=== PATIENT | male | born 1950 | race African-American/Black ===

== ENCOUNTER 2022-06-20 11:07 | Inpatient (IN) | payer MEDICARE, OTHER ==
[~2022-06-20] VITALS: Ht 180.3 cm; Wt 85.3 kg
[2022-07-06 17:30] VITALS: BP 111/51
[2022-07-06] MEDS ORDERED: ACETAMINOPHEN 325 MG TABLET PO PRN (18:15)
[2022-07-06 18:29] VITALS: BP 111/51
[2022-07-06] MEDS ORDERED: PEG 400/HYPROMELLOSE/GLYCERIN 15 ML OPHTHALMIC SOLUTION OU PRN (18:30)
[2022-07-06] MEDS ORDERED: ONDANSETRON HCL 4 MG TABLET PO PRN (18:30)
[2022-07-06] MEDS: OxyCODONE HCL 5 MG IR TABLET PO PRN (19:12)
[2022-07-06] MEDS ORDERED: PETROLATUM,WHITE 28 GM JELLY TP PRN (19:45)
[2022-07-06] MEDS: ETHYL ALCOHOL 62% ANTISEPTIC NASAL SANITIZER 0.6 ML AMPUL NASAL SCH (22:17)
[2022-07-06] MEDS: MELATONIN 5 MG TABLET PO SCH (22:22)
[2022-07-06] MEDS: -LIDODERM PATCH NOTE- MISC SCH (22:22)
[2022-07-06] MEDS: APIXABAN 5 MG TABLET PO SCH (22:22)
[2022-07-06] MEDS: SENNOSIDES 8.6 MG TABLET PO SCH (22:22)
[2022-07-06] MEDS: TAMSULOSIN HCL 0.4 MG CAPSULE PO SCH (22:22)
[2022-07-06] MEDS: DOCUSATE SODIUM 100 MG CAPSULE PO SCH (22:22)
[2022-07-06] MEDS: BACITRACIN 28 GM OINTMENT TP SCH (22:23)
[2022-07-06] MEDS: CHLORHEXIDINE GLUCONATE 4% 118 ML TOPICAL LIQUID TP SCH (22:23)
[2022-07-06] MEDS: 0.9% SODIUM CHLORIDE 10 ML SYRINGE IVP SCH (22:26)
[2022-07-07] MEDS ORDERED: ONDANSETRON HCL 4 MG TABLET PO PRN (06:30)
[2022-07-07 08:19] LABS: BASOPHILS % (AUTO) 0.8 % (0.0-2.0); EOSINOPHILS % (AUTO) 0.6 % (1.0-6.0); HEMATOCRIT 30.1 % (41-53); LYMPHOCYTES # (AUTO) 1.9 K/uL (1.0-4.8); LYMPHOCYTES % (AUTO) 14.9 % (22.0-44.0); MEAN CORPUSCULAR HGB CONC 33.2 G/dL (31.0-37.0); MEAN CORPUSCULAR VOLUME 91 fL (80-100); MONOCYTES # (AUTO) 1.2 K/uL (0.1-1.0); MONOCYTES % (AUTO) 9.5 % (2.0-9.0); NEUTROPHILS # (AUTO) 9.2 K/uL (1.8-7.7); NEUTROPHILS % (AUTO) 74.2 % (40.0-70.0); PLATELET COUNT (AUTO) 587 K/uL (150-450); RED BLOOD CELL COUNT(AUTO) 3.33 MIL/uL (4.50-5.90); RED CELL DISTRIBUTION WIDTH 14.9 % (11.5-14.5)
[2022-07-07 08:30] VITALS: BP 150/58
[2022-07-07 08:44] LABS: ALANINE AMINOTRANSFERASE 39 U/L (12-78); ALBUMIN 2.2 g/dL (3.4-5.0); ALKALINE PHOSPHATASE 118 U/L (46-116); ANION GAP 10 mmol/L (8-16); ASPARTATE AMINOTRANSFERASE 27 U/L (15-37); BILIRUBIN,TOTAL 0.3 mg/dL (0.1-1.0); CALCIUM, TOTAL 8.9 mg/dL (8.8-10.5); CARBON DIOXIDE 25 mmol/L (22-29); CHLORIDE 104 mmol/L (98-107); CREATININE 0.68 mg/dL (0.60-1.30); GLOMERULAR FILTR. RATE CALC > 60 mL/min (>60); GLUCOSE,RANDOM 102 mg/dL (70-110); POTASSIUM 3.7 mmol/L (3.5-5.1); SODIUM SERUM 139 mmol/L (136-145); TOTAL PROTEIN, SERUM 6.7 g/dL (6.4-8.2)
[2022-07-07] MEDS: DOCUSATE SODIUM 100 MG CAPSULE PO SCH ×2 (09:00→22:05)
[2022-07-07] MEDS: FERROUS SULFATE 325 MG EC TABLET PO SCH (10:06)
[2022-07-07] MEDS: ASCORBIC ACID 500 MG TABLET PO SCH (10:07)
[2022-07-07] MEDS: CLOPIDOGREL BISULFATE 75 MG TABLET PO SCH (10:08)
[2022-07-07] MEDS: BUMETANIDE 1 MG TABLET PO SCH (10:08)
[2022-07-07] MEDS: FINASTERIDE 5 MG TABLET PO SCH (10:08)
[2022-07-07] MEDS: MULTIVITAMINS WITH MINERALS, THERAPEUTIC TABLET PO SCH (10:08)
[2022-07-07] MEDS: PANTOPRAZOLE SODIUM 40 MG DR TABLET PO SCH (10:08)
[2022-07-07] MEDS: APIXABAN 5 MG TABLET PO SCH ×2 (10:09→22:01)
[2022-07-07] MEDS: LOSARTAN POTASSIUM 50 MG TABLET PO SCH (10:09)
[2022-07-07] MEDS: LIDOCAINE 5% TRANSDERMAL PATCH TD SCH (10:12)
[2022-07-07] MEDS: ETHYL ALCOHOL 62% ANTISEPTIC NASAL SANITIZER 0.6 ML AMPUL NASAL SCH ×2 (10:12→22:02)
[2022-07-07] MEDS: BACITRACIN 28 GM OINTMENT TP SCH ×2 (10:14→22:02)
[2022-07-07] MEDS: 0.9% SODIUM CHLORIDE 10 ML SYRINGE IVP SCH ×2 (10:14→22:02)
[2022-07-07] MEDS: ATENOLOL 50 MG TABLET PO SCH (10:40)
[2022-07-07] MEDS: ZINC SULFATE 220 MG CAPSULE PO SCH (10:40)
[2022-07-07] MEDS: OxyCODONE HCL 5 MG IR TABLET PO PRN (13:31)
[2022-07-07] MEDS: DULoxetine HCL 20 MG CAPSULE PO SCH (14:14)
[2022-07-07] MEDS ORDERED: SODIUM CHLORIDE 0.9% 250 ML IV ONE ×2 (17:14→17:38)
[2022-07-07] MEDS: ERTAPENEM SODIUM 1 GM in SODIUM CHLORIDE 0.9% 50 ML IV SCH (17:24)
[2022-07-07] MEDS: GABAPENTIN 100 MG CAPSULE PO SCH ×2 (17:25→22:00)
[2022-07-07 20:45] VITALS: BP 111/84
[2022-07-07] MEDS: TAMSULOSIN HCL 0.4 MG CAPSULE PO SCH (22:00)
[2022-07-07] MEDS: MELATONIN 5 MG TABLET PO SCH (22:01)
[2022-07-07] MEDS: SENNOSIDES 8.6 MG TABLET PO SCH (22:01)
[2022-07-07] MEDS: ATORVASTATIN CALCIUM 40 MG TABLET PO SCH (22:01)
[2022-07-07] MEDS: -LIDODERM PATCH NOTE- MISC SCH (22:02)
[2022-07-07] MEDS: CHLORHEXIDINE GLUCONATE 4% 118 ML TOPICAL LIQUID TP SCH (22:03)
[2022-07-08 08:05] VITALS: BP 122/63
[2022-07-08] MEDS: ETHYL ALCOHOL 62% ANTISEPTIC NASAL SANITIZER 0.6 ML AMPUL NASAL SCH ×2 (08:50→21:11)
[2022-07-08] MEDS: MULTIVITAMINS WITH MINERALS, THERAPEUTIC TABLET PO SCH (08:51)
[2022-07-08] MEDS: GABAPENTIN 100 MG CAPSULE PO SCH ×3 (08:51→21:13)
[2022-07-08] MEDS: CLOPIDOGREL BISULFATE 75 MG TABLET PO SCH (08:51)
[2022-07-08] MEDS: APIXABAN 5 MG TABLET PO SCH ×2 (08:51→21:15)
[2022-07-08] MEDS: FERROUS SULFATE 325 MG EC TABLET PO SCH (08:51)
[2022-07-08] MEDS: DOCUSATE SODIUM 100 MG CAPSULE PO SCH ×2 (08:51→21:00)
[2022-07-08] MEDS: PANTOPRAZOLE SODIUM 40 MG DR TABLET PO SCH (08:51)
[2022-07-08] MEDS: BUMETANIDE 1 MG TABLET PO SCH (08:51)
[2022-07-08] MEDS: LOSARTAN POTASSIUM 50 MG TABLET PO SCH (08:51)
[2022-07-08] MEDS: DULoxetine HCL 20 MG CAPSULE PO SCH (08:51)
[2022-07-08] MEDS: FINASTERIDE 5 MG TABLET PO SCH (08:52)
[2022-07-08] MEDS: ASCORBIC ACID 500 MG TABLET PO SCH (08:52)
[2022-07-08] MEDS: 0.9% SODIUM CHLORIDE 10 ML SYRINGE IVP SCH ×2 (08:55→21:11)
[2022-07-08] MEDS: ATENOLOL 50 MG TABLET PO SCH (08:56)
[2022-07-08] MEDS: ZINC SULFATE 220 MG CAPSULE PO SCH (08:56)
[2022-07-08] MEDS: LIDOCAINE 5% TRANSDERMAL PATCH TD SCH (08:57)
[2022-07-08] MEDS: BACITRACIN 28 GM OINTMENT TP SCH ×2 (08:57→21:13)
[2022-07-08 09:14] LABS: THYROID STIMULATING HORMONE 0.96 uIU/mL (0.36-3.74)
[2022-07-08] MEDS: ERTAPENEM SODIUM 1 GM in SODIUM CHLORIDE 0.9% 50 ML IV SCH (16:32)
[2022-07-08] MEDS: SENNOSIDES 8.6 MG TABLET PO SCH (21:00)
[2022-07-08] MEDS: MELATONIN 5 MG TABLET PO SCH (21:00)
[2022-07-08] MEDS: -LIDODERM PATCH NOTE- MISC SCH (21:11)
[2022-07-08] MEDS: TraZODone HCL 50 MG TABLET PO SCH (21:12)
[2022-07-08] MEDS: CHLORHEXIDINE GLUCONATE 4% 118 ML TOPICAL LIQUID TP SCH (21:13)
[2022-07-08] MEDS: ATORVASTATIN CALCIUM 40 MG TABLET PO SCH (21:14)
[2022-07-08] MEDS: TAMSULOSIN HCL 0.4 MG CAPSULE PO SCH (21:15)
[2022-07-08 21:46] VITALS: BP 127/54
[2022-07-09 06:50] LABS: EOSINOPHILS % (AUTO) 0.8 % (1.0-6.0); HEMATOCRIT 28.7 % (41-53); HEMOGLOBIN 9.6 g/dL (13.5-17.5); LYMPHOCYTES # (AUTO) 1.8 K/uL (1.0-4.8); LYMPHOCYTES % (AUTO) 17.4 % (22.0-44.0); MEAN CORPUSCULAR HEMOGLOBIN 30.2 pg (26.0-34.0); MEAN CORPUSCULAR HGB CONC 33.6 G/dL (31.0-37.0); MEAN CORPUSCULAR VOLUME 90 fL (80-100); MONOCYTES % (AUTO) 9.7 % (2.0-9.0); NEUTROPHILS # (AUTO) 7.5 K/uL (1.8-7.7); NEUTROPHILS % (AUTO) 71.1 % (40.0-70.0); PLATELET COUNT (AUTO) 508 K/uL (150-450); RED BLOOD CELL COUNT(AUTO) 3.19 MIL/uL (4.50-5.90); RED CELL DISTRIBUTION WIDTH 14.7 % (11.5-14.5)
[2022-07-09 07:03] LABS: ALANINE AMINOTRANSFERASE 36 U/L (12-78); ALBUMIN 2.1 g/dL (3.4-5.0); ALKALINE PHOSPHATASE 103 U/L (46-116); ANION GAP 8 mmol/L (8-16); ASPARTATE AMINOTRANSFERASE 24 U/L (15-37); BILIRUBIN,TOTAL 0.4 mg/dL (0.1-1.0); CALCIUM, TOTAL 8.9 mg/dL (8.8-10.5); CARBON DIOXIDE 27 mmol/L (22-29); CHLORIDE 105 mmol/L (98-107); CREATININE 0.75 mg/dL (0.60-1.30); GLOMERULAR FILTR. RATE CALC > 60 mL/min (>60); GLUCOSE,RANDOM 107 mg/dL (70-110); POTASSIUM 3.7 mmol/L (3.5-5.1); SODIUM SERUM 140 mmol/L (136-145); TOTAL PROTEIN, SERUM 6.2 g/dL (6.4-8.2)
[2022-07-09 08:30] VITALS: BP 132/61
[2022-07-09] MEDS: APIXABAN 5 MG TABLET PO SCH ×2 (08:31→21:05)
[2022-07-09] MEDS: GABAPENTIN 100 MG CAPSULE PO SCH ×3 (08:32→21:04)
[2022-07-09] MEDS: DOCUSATE SODIUM 100 MG CAPSULE PO SCH ×2 (08:32→21:05)
[2022-07-09] MEDS: ATENOLOL 50 MG TABLET PO SCH (08:32)
[2022-07-09] MEDS: LOSARTAN POTASSIUM 50 MG TABLET PO SCH (08:32)
[2022-07-09] MEDS: DULoxetine HCL 20 MG CAPSULE PO SCH (08:32)
[2022-07-09] MEDS: FINASTERIDE 5 MG TABLET PO SCH (08:32)
[2022-07-09] MEDS: MULTIVITAMINS WITH MINERALS, THERAPEUTIC TABLET PO SCH (08:32)
[2022-07-09] MEDS: ZINC SULFATE 220 MG CAPSULE PO SCH (08:32)
[2022-07-09] MEDS: ETHYL ALCOHOL 62% ANTISEPTIC NASAL SANITIZER 0.6 ML AMPUL NASAL SCH ×2 (08:33→21:04)
[2022-07-09] MEDS: FERROUS SULFATE 325 MG EC TABLET PO SCH (08:33)
[2022-07-09] MEDS: CLOPIDOGREL BISULFATE 75 MG TABLET PO SCH (08:33)
[2022-07-09] MEDS: BUMETANIDE 1 MG TABLET PO SCH (08:33)
[2022-07-09] MEDS: PANTOPRAZOLE SODIUM 40 MG DR TABLET PO SCH (08:33)
[2022-07-09] MEDS: ASCORBIC ACID 500 MG TABLET PO SCH (08:33)
[2022-07-09] MEDS: LIDOCAINE 5% TRANSDERMAL PATCH TD SCH (08:34)
[2022-07-09] MEDS: BACITRACIN 28 GM OINTMENT TP SCH ×2 (08:34→21:05)
[2022-07-09] MEDS: 0.9% SODIUM CHLORIDE 10 ML SYRINGE IVP SCH ×2 (09:00→21:04)
[2022-07-09] MEDS: ERTAPENEM SODIUM 1 GM in SODIUM CHLORIDE 0.9% 50 ML IV SCH (17:47)
[2022-07-09 21:00] VITALS: BP 131/68
[2022-07-09] MEDS: SENNOSIDES 8.6 MG TABLET PO SCH (21:00)
[2022-07-09] MEDS: ATORVASTATIN CALCIUM 40 MG TABLET PO SCH (21:04)
[2022-07-09] MEDS: -LIDODERM PATCH NOTE- MISC SCH (21:04)
[2022-07-09] MEDS: CHLORHEXIDINE GLUCONATE 4% 118 ML TOPICAL LIQUID TP SCH (21:05)
[2022-07-09] MEDS: COLD CREAM, SKIN EMOLLIENT 170 GM JAR TP SCH (21:05)
[2022-07-09] MEDS: TAMSULOSIN HCL 0.4 MG CAPSULE PO SCH (21:05)
[2022-07-09] MEDS: TraZODone HCL 50 MG TABLET PO SCH (21:05)
[2022-07-10] MEDS ORDERED: BUME1TAB34 PO (00:13)
[2022-07-10] MEDS ORDERED: LOSA-382 PO (00:13)
[2022-07-10] MEDS ORDERED: TAMS-13 PO (00:13)
[2022-07-10] MEDS ORDERED: ATEN-72 PO (00:13)
[2022-07-10] MEDS ORDERED: PANT-31 PO (00:13)
[2022-07-10] MEDS ORDERED: ATOR40TA28 PO (00:13)
[2022-07-10] MEDS ORDERED: FINA-27 PO (00:13)
[2022-07-10] MEDS ORDERED: CLOP75TA60 PO (00:13)
[2022-07-10] MEDS ORDERED: APIX5TAB PO (00:13)
[2022-07-10 08:02] VITALS: BP 127/76
[2022-07-10] MEDS: ETHYL ALCOHOL 62% ANTISEPTIC NASAL SANITIZER 0.6 ML AMPUL NASAL SCH ×2 (08:20→21:53)
[2022-07-10] MEDS: FERROUS SULFATE 325 MG EC TABLET PO SCH (08:21)
[2022-07-10] MEDS: PANTOPRAZOLE SODIUM 40 MG DR TABLET PO SCH (08:21)
[2022-07-10] MEDS: MULTIVITAMINS WITH MINERALS, THERAPEUTIC TABLET PO SCH (08:21)
[2022-07-10] MEDS: BUMETANIDE 1 MG TABLET PO SCH (08:21)
[2022-07-10] MEDS: DOCUSATE SODIUM 100 MG CAPSULE PO SCH ×2 (08:21→21:00)
[2022-07-10] MEDS: ASCORBIC ACID 500 MG TABLET PO SCH (08:22)
[2022-07-10] MEDS: LOSARTAN POTASSIUM 50 MG TABLET PO SCH (08:22)
[2022-07-10] MEDS: CLOPIDOGREL BISULFATE 75 MG TABLET PO SCH (08:22)
[2022-07-10] MEDS: GABAPENTIN 100 MG CAPSULE PO SCH ×3 (08:22→21:55)
[2022-07-10] MEDS: APIXABAN 5 MG TABLET PO SCH ×2 (08:22→21:54)
[2022-07-10] MEDS: FINASTERIDE 5 MG TABLET PO SCH (08:23)
[2022-07-10] MEDS: BACITRACIN 28 GM OINTMENT TP SCH ×2 (08:24→21:55)
[2022-07-10] MEDS: DULoxetine HCL 20 MG CAPSULE PO SCH (08:25)
[2022-07-10] MEDS: LIDOCAINE 5% TRANSDERMAL PATCH TD SCH (08:25)
[2022-07-10] MEDS: ZINC SULFATE 220 MG CAPSULE PO SCH (08:25)
[2022-07-10] MEDS: ATENOLOL 50 MG TABLET PO SCH (08:25)
[2022-07-10] MEDS: COLD CREAM, SKIN EMOLLIENT 170 GM JAR TP SCH ×2 (08:30→22:34)
[2022-07-10] MEDS: 0.9% SODIUM CHLORIDE 10 ML SYRINGE IVP SCH ×2 (08:32→22:11)
[2022-07-10] MEDS ORDERED: SODIUM CHLORIDE 0.9% 100 ML ONE (16:21)
[2022-07-10] MEDS: ERTAPENEM SODIUM 1 GM in SODIUM CHLORIDE 0.9% 50 ML IV SCH (16:23)
[2022-07-10 21:00] VITALS: BP 92/64
[2022-07-10] MEDS: SENNOSIDES 8.6 MG TABLET PO SCH (21:00)
[2022-07-10] MEDS: -LIDODERM PATCH NOTE- MISC SCH (21:53)
[2022-07-10] MEDS: TraZODone HCL 50 MG TABLET PO SCH (21:54)
[2022-07-10] MEDS: ATORVASTATIN CALCIUM 40 MG TABLET PO SCH (21:54)
[2022-07-10] MEDS: TAMSULOSIN HCL 0.4 MG CAPSULE PO SCH (21:54)
[2022-07-10] MEDS: CHLORHEXIDINE GLUCONATE 4% 118 ML TOPICAL LIQUID TP SCH (21:56)
[2022-07-11 08:05] VITALS: BP 133/67
[2022-07-11] MEDS: APIXABAN 5 MG TABLET PO SCH ×2 (08:16→21:16)
[2022-07-11] MEDS: MULTIVITAMINS WITH MINERALS, THERAPEUTIC TABLET PO SCH (08:16)
[2022-07-11] MEDS: FERROUS SULFATE 325 MG EC TABLET PO SCH (08:16)
[2022-07-11] MEDS: BUMETANIDE 1 MG TABLET PO SCH (08:16)
[2022-07-11] MEDS: FINASTERIDE 5 MG TABLET PO SCH (08:16)
[2022-07-11] MEDS: BACITRACIN 28 GM OINTMENT TP SCH ×2 (08:17→21:17)
[2022-07-11] MEDS: ASCORBIC ACID 500 MG TABLET PO SCH (08:17)
[2022-07-11] MEDS: PANTOPRAZOLE SODIUM 40 MG DR TABLET PO SCH (08:17)
[2022-07-11] MEDS: LOSARTAN POTASSIUM 50 MG TABLET PO SCH (08:17)
[2022-07-11] MEDS: GABAPENTIN 100 MG CAPSULE PO SCH ×3 (08:17→21:16)
[2022-07-11] MEDS: ATENOLOL 50 MG TABLET PO SCH (08:17)
[2022-07-11] MEDS: CLOPIDOGREL BISULFATE 75 MG TABLET PO SCH (08:17)
[2022-07-11] MEDS: COLD CREAM, SKIN EMOLLIENT 170 GM JAR TP SCH ×2 (08:18→21:17)
[2022-07-11] MEDS: ETHYL ALCOHOL 62% ANTISEPTIC NASAL SANITIZER 0.6 ML AMPUL NASAL SCH ×2 (08:18→21:14)
[2022-07-11] MEDS: DULoxetine HCL 20 MG CAPSULE PO SCH (08:18)
[2022-07-11] MEDS: ZINC SULFATE 220 MG CAPSULE PO SCH (08:18)
[2022-07-11] MEDS: DOCUSATE SODIUM 100 MG CAPSULE PO SCH (08:19)
[2022-07-11] MEDS: LIDOCAINE 5% TRANSDERMAL PATCH TD SCH (08:20)
[2022-07-11] MEDS: 0.9% SODIUM CHLORIDE 10 ML SYRINGE IVP SCH ×2 (08:37→21:14)
[2022-07-11] MEDS ORDERED: DOCUSATE SODIUM 100 MG CAPSULE PO PRN (13:00)
[2022-07-11] MEDS ORDERED: SENNOSIDES 8.6 MG TABLET PO PRN (13:00)
[2022-07-11] MEDS: ERTAPENEM SODIUM 1 GM in SODIUM CHLORIDE 0.9% 50 ML IV SCH (15:46)
[2022-07-11] MEDS ORDERED: LORazepam 2 MG/ML VIAL IM ONE (16:45)
[2022-07-11] MEDS: CHLORHEXIDINE GLUCONATE 4% 118 ML TOPICAL LIQUID TP SCH (21:12)
[2022-07-11] MEDS: -LIDODERM PATCH NOTE- MISC SCH (21:14)
[2022-07-11 21:16] VITALS: BP 116/58
[2022-07-11] MEDS: ATORVASTATIN CALCIUM 40 MG TABLET PO SCH (21:16)
[2022-07-11] MEDS: TAMSULOSIN HCL 0.4 MG CAPSULE PO SCH (21:16)
[2022-07-11] MEDS: TraZODone HCL 50 MG TABLET PO SCH (21:26)
[2022-07-12 08:05] VITALS: BP 108/66
[2022-07-12] MEDS: FINASTERIDE 5 MG TABLET PO SCH (08:15)
[2022-07-12] MEDS: GABAPENTIN 100 MG CAPSULE PO SCH ×3 (08:15→20:40)
[2022-07-12] MEDS: BUMETANIDE 1 MG TABLET PO SCH (08:16)
[2022-07-12] MEDS: LOSARTAN POTASSIUM 50 MG TABLET PO SCH (08:16)
[2022-07-12] MEDS: PANTOPRAZOLE SODIUM 40 MG DR TABLET PO SCH (08:16)
[2022-07-12] MEDS: CLOPIDOGREL BISULFATE 75 MG TABLET PO SCH (08:16)
[2022-07-12] MEDS: ETHYL ALCOHOL 62% ANTISEPTIC NASAL SANITIZER 0.6 ML AMPUL NASAL SCH ×2 (08:16→20:40)
[2022-07-12] MEDS: MULTIVITAMINS WITH MINERALS, THERAPEUTIC TABLET PO SCH (08:16)
[2022-07-12] MEDS: APIXABAN 5 MG TABLET PO SCH ×2 (08:16→20:40)
[2022-07-12] MEDS: FERROUS SULFATE 325 MG EC TABLET PO SCH (08:16)
[2022-07-12] MEDS: ASCORBIC ACID 500 MG TABLET PO SCH (08:16)
[2022-07-12] MEDS: BACITRACIN 28 GM OINTMENT TP SCH ×2 (08:17→20:41)
[2022-07-12] MEDS: ATENOLOL 50 MG TABLET PO SCH (08:18)
[2022-07-12] MEDS: ZINC SULFATE 220 MG CAPSULE PO SCH (08:18)
[2022-07-12] MEDS: LIDOCAINE 5% TRANSDERMAL PATCH TD SCH (08:18)
[2022-07-12] MEDS: DULoxetine HCL 20 MG CAPSULE PO SCH (08:19)
[2022-07-12] MEDS: COLD CREAM, SKIN EMOLLIENT 170 GM JAR TP SCH ×2 (08:20→20:41)
[2022-07-12 08:30] VITALS: BP 110/64
[2022-07-12] MEDS: 0.9% SODIUM CHLORIDE 10 ML SYRINGE IVP SCH ×2 (08:32→20:39)
[2022-07-12] MEDS ORDERED: LORazepam 2 MG/ML VIAL IM ONE (09:15)
[2022-07-12] MEDS ORDERED: LORazepam 2 MG/ML VIAL IVP ONE (12:30)
[2022-07-12] MEDS: ERTAPENEM SODIUM 1 GM in SODIUM CHLORIDE 0.9% 50 ML IV SCH (16:21)
[2022-07-12 20:40] VITALS: BP 127/63
[2022-07-12] MEDS: -LIDODERM PATCH NOTE- MISC SCH (20:40)
[2022-07-12] MEDS: ATORVASTATIN CALCIUM 40 MG TABLET PO SCH (20:40)
[2022-07-12] MEDS: TAMSULOSIN HCL 0.4 MG CAPSULE PO SCH (20:40)
[2022-07-12] MEDS: TraZODone HCL 50 MG TABLET PO SCH (20:40)
[2022-07-12] MEDS: CHLORHEXIDINE GLUCONATE 4% 118 ML TOPICAL LIQUID TP SCH (20:41)
[2022-07-13] MEDS: OxyCODONE HCL 5 MG IR TABLET PO PRN ×2 (04:52→14:45)
[2022-07-13 08:10] VITALS: BP 127/53
[2022-07-13] MEDS: ETHYL ALCOHOL 62% ANTISEPTIC NASAL SANITIZER 0.6 ML AMPUL NASAL SCH ×2 (08:53→20:22)
[2022-07-13] MEDS: FERROUS SULFATE 325 MG EC TABLET PO SCH (08:53)
[2022-07-13] MEDS: 0.9% SODIUM CHLORIDE 10 ML SYRINGE IVP SCH ×2 (08:53→20:21)
[2022-07-13] MEDS: BUMETANIDE 1 MG TABLET PO SCH (08:54)
[2022-07-13] MEDS: LOSARTAN POTASSIUM 50 MG TABLET PO SCH (08:54)
[2022-07-13] MEDS: DULoxetine HCL 30 MG CAPSULE PO SCH (08:54)
[2022-07-13] MEDS: APIXABAN 5 MG TABLET PO SCH ×2 (08:55→20:22)
[2022-07-13] MEDS: GABAPENTIN 100 MG CAPSULE PO SCH ×3 (08:55→20:22)
[2022-07-13] MEDS: PANTOPRAZOLE SODIUM 40 MG DR TABLET PO SCH (08:55)
[2022-07-13] MEDS: FINASTERIDE 5 MG TABLET PO SCH (08:55)
[2022-07-13] MEDS: CLOPIDOGREL BISULFATE 75 MG TABLET PO SCH (08:55)
[2022-07-13] MEDS: ATENOLOL 50 MG TABLET PO SCH (08:56)
[2022-07-13] MEDS: ZINC SULFATE 220 MG CAPSULE PO SCH (08:56)
[2022-07-13] MEDS: MULTIVITAMINS WITH MINERALS, THERAPEUTIC TABLET PO SCH (08:56)
[2022-07-13] MEDS: ASCORBIC ACID 500 MG TABLET PO SCH (08:56)
[2022-07-13] MEDS: LIDOCAINE 5% TRANSDERMAL PATCH TD SCH (08:56)
[2022-07-13] MEDS: COLD CREAM, SKIN EMOLLIENT 170 GM JAR TP SCH ×2 (08:57→20:23)
[2022-07-13] MEDS: BACITRACIN 28 GM OINTMENT TP SCH ×2 (08:57→20:23)
[2022-07-13] MEDS ORDERED: SODIUM CHLORIDE 0.9% 100 ML ONE (15:49)
[2022-07-13] MEDS: ERTAPENEM SODIUM 1 GM in SODIUM CHLORIDE 0.9% 50 ML IV SCH (16:08)
[2022-07-13 20:00] VITALS: BP 105/53
[2022-07-13] MEDS: -LIDODERM PATCH NOTE- MISC SCH (20:21)
[2022-07-13] MEDS: ATORVASTATIN CALCIUM 40 MG TABLET PO SCH (20:22)
[2022-07-13] MEDS: TraZODone HCL 50 MG TABLET PO SCH (20:22)
[2022-07-13] MEDS: TAMSULOSIN HCL 0.4 MG CAPSULE PO SCH (20:22)
[2022-07-13] MEDS: CHLORHEXIDINE GLUCONATE 4% 118 ML TOPICAL LIQUID TP SCH (20:23)
[2022-07-14 08:05] VITALS: BP 133/60
[2022-07-14] MEDS: 0.9% SODIUM CHLORIDE 10 ML SYRINGE IVP SCH ×2 (08:39→21:20)
[2022-07-14] MEDS: FERROUS SULFATE 325 MG EC TABLET PO SCH (08:39)
[2022-07-14] MEDS: ETHYL ALCOHOL 62% ANTISEPTIC NASAL SANITIZER 0.6 ML AMPUL NASAL SCH ×2 (08:40→21:19)
[2022-07-14] MEDS: BUMETANIDE 1 MG TABLET PO SCH (08:41)
[2022-07-14] MEDS: LOSARTAN POTASSIUM 50 MG TABLET PO SCH (08:41)
[2022-07-14] MEDS: APIXABAN 5 MG TABLET PO SCH ×2 (08:41→21:19)
[2022-07-14] MEDS: GABAPENTIN 100 MG CAPSULE PO SCH ×3 (08:41→21:18)
[2022-07-14] MEDS: LIDOCAINE 5% TRANSDERMAL PATCH TD SCH (08:43)
[2022-07-14] MEDS: DULoxetine HCL 30 MG CAPSULE PO SCH (08:48)
[2022-07-14] MEDS: ZINC SULFATE 220 MG CAPSULE PO SCH (08:48)
[2022-07-14] MEDS: ATENOLOL 50 MG TABLET PO SCH (08:49)
[2022-07-14] MEDS: BACITRACIN 28 GM OINTMENT TP SCH ×2 (08:58→21:26)
[2022-07-14] MEDS: COLD CREAM, SKIN EMOLLIENT 170 GM JAR TP SCH ×2 (09:03→21:34)
[2022-07-14] MEDS: PANTOPRAZOLE SODIUM 40 MG DR TABLET PO SCH (09:03)
[2022-07-14] MEDS: FINASTERIDE 5 MG TABLET PO SCH (09:04)
[2022-07-14] MEDS: MULTIVITAMINS WITH MINERALS, THERAPEUTIC TABLET PO SCH (09:04)
[2022-07-14] MEDS: CLOPIDOGREL BISULFATE 75 MG TABLET PO SCH (09:05)
[2022-07-14] MEDS: ASCORBIC ACID 500 MG TABLET PO SCH (09:05)
[2022-07-14] MEDS: OxyCODONE HCL 5 MG IR TABLET PO PRN (14:50)
[2022-07-14] MEDS: ERTAPENEM SODIUM 1 GM in SODIUM CHLORIDE 0.9% 50 ML IV SCH (17:06)
[2022-07-14 20:00] VITALS: BP 121/64
[2022-07-14] MEDS: TAMSULOSIN HCL 0.4 MG CAPSULE PO SCH (21:19)
[2022-07-14] MEDS: -LIDODERM PATCH NOTE- MISC SCH (21:19)
[2022-07-14] MEDS: TraZODone HCL 50 MG TABLET PO SCH (21:19)
[2022-07-14] MEDS: ATORVASTATIN CALCIUM 40 MG TABLET PO SCH (21:19)
[2022-07-14] MEDS: CHLORHEXIDINE GLUCONATE 4% 118 ML TOPICAL LIQUID TP SCH (21:24)
[2022-07-15] MEDS: ATENOLOL 50 MG TABLET PO SCH (09:05)
[2022-07-15] MEDS: DULoxetine HCL 30 MG CAPSULE PO SCH (09:05)
[2022-07-15] MEDS: ZINC SULFATE 220 MG CAPSULE PO SCH (09:05)
[2022-07-15] MEDS: APIXABAN 5 MG TABLET PO SCH ×2 (09:06→21:20)
[2022-07-15] MEDS: PANTOPRAZOLE SODIUM 40 MG DR TABLET PO SCH (09:06)
[2022-07-15] MEDS: BUMETANIDE 1 MG TABLET PO SCH (09:06)
[2022-07-15] MEDS: MULTIVITAMINS WITH MINERALS, THERAPEUTIC TABLET PO SCH (09:06)
[2022-07-15] MEDS: GABAPENTIN 100 MG CAPSULE PO SCH ×3 (09:06→21:20)
[2022-07-15] MEDS: FINASTERIDE 5 MG TABLET PO SCH (09:06)
[2022-07-15] MEDS: CLOPIDOGREL BISULFATE 75 MG TABLET PO SCH (09:06)
[2022-07-15] MEDS: ASCORBIC ACID 500 MG TABLET PO SCH (09:06)
[2022-07-15] MEDS: ETHYL ALCOHOL 62% ANTISEPTIC NASAL SANITIZER 0.6 ML AMPUL NASAL SCH ×2 (09:07→21:20)
[2022-07-15] MEDS: LIDOCAINE 5% TRANSDERMAL PATCH TD SCH (09:07)
[2022-07-15] MEDS: FERROUS SULFATE 325 MG EC TABLET PO SCH (09:09)
[2022-07-15] MEDS: LOSARTAN POTASSIUM 50 MG TABLET PO SCH (09:09)
[2022-07-15] MEDS: COLD CREAM, SKIN EMOLLIENT 170 GM JAR TP SCH ×2 (09:10→21:21)
[2022-07-15] MEDS: BACITRACIN 28 GM OINTMENT TP SCH ×2 (09:10→21:24)
[2022-07-15] MEDS: 0.9% SODIUM CHLORIDE 10 ML SYRINGE IVP SCH ×2 (09:12→21:20)
[2022-07-15 15:13] VITALS: BP 116/50
[2022-07-15] MEDS: ERTAPENEM SODIUM 1 GM in SODIUM CHLORIDE 0.9% 50 ML IV SCH (16:14)
[2022-07-15 21:00] VITALS: BP 112/40
[2022-07-15] MEDS: TraZODone HCL 50 MG TABLET PO SCH (21:20)
[2022-07-15] MEDS: -LIDODERM PATCH NOTE- MISC SCH (21:20)
[2022-07-15] MEDS: TAMSULOSIN HCL 0.4 MG CAPSULE PO SCH (21:20)
[2022-07-15] MEDS: ATORVASTATIN CALCIUM 40 MG TABLET PO SCH (21:20)
[2022-07-15] MEDS: CHLORHEXIDINE GLUCONATE 4% 118 ML TOPICAL LIQUID TP SCH (21:24)
[2022-07-16 05:51] LABS: EOSINOPHILS % (AUTO) 1.6 % (1.0-6.0); HEMATOCRIT 25.2 % (41-53); HEMOGLOBIN 8.1 g/dL (13.5-17.5); LYMPHOCYTES # (AUTO) 2.4 K/uL (1.0-4.8); LYMPHOCYTES % (AUTO) 17.3 % (22.0-44.0); MEAN CORPUSCULAR HEMOGLOBIN 29.1 pg (26.0-34.0); MEAN CORPUSCULAR HGB CONC 32.3 G/dL (31.0-37.0); MEAN CORPUSCULAR VOLUME 90 fL (80-100); MONOCYTES # (AUTO) 1.5 K/uL (0.1-1.0); MONOCYTES % (AUTO) 10.8 % (2.0-9.0); NEUTROPHILS # (AUTO) 9.4 K/uL (1.8-7.7); NEUTROPHILS % (AUTO) 69.3 % (40.0-70.0); PLATELET COUNT (AUTO) 238 K/uL (150-450); RED BLOOD CELL COUNT(AUTO) 2.79 MIL/uL (4.50-5.90); RED CELL DISTRIBUTION WIDTH 15.3 % (11.5-14.5)
[2022-07-16 06:06] LABS: ALANINE AMINOTRANSFERASE 29 U/L (12-78); ALBUMIN 2.2 g/dL (3.4-5.0); ALKALINE PHOSPHATASE 107 U/L (46-116); ANION GAP 9 mmol/L (8-16); ASPARTATE AMINOTRANSFERASE 16 U/L (15-37); BILIRUBIN,TOTAL 0.4 mg/dL (0.1-1.0); C-REACTIVE PROTEIN QUANT 3.72 mg/dL (0.00-0.30); CALCIUM, TOTAL 8.7 mg/dL (8.8-10.5); CARBON DIOXIDE 28 mmol/L (22-29); CHLORIDE 104 mmol/L (98-107); CREATININE 0.75 mg/dL (0.60-1.30); GLOMERULAR FILTR. RATE CALC > 60 mL/min (>60); GLUCOSE,RANDOM 109 mg/dL (70-110); POTASSIUM 3.9 mmol/L (3.5-5.1); SODIUM SERUM 141 mmol/L (136-145); TOTAL PROTEIN, SERUM 6.2 g/dL (6.4-8.2)
[2022-07-16 08:00] VITALS: BP 135/56
[2022-07-16] MEDS: ETHYL ALCOHOL 62% ANTISEPTIC NASAL SANITIZER 0.6 ML AMPUL NASAL SCH ×2 (08:26→22:03)
[2022-07-16] MEDS: CLOPIDOGREL BISULFATE 75 MG TABLET PO SCH (08:27)
[2022-07-16] MEDS: GABAPENTIN 100 MG CAPSULE PO SCH ×3 (08:27→22:05)
[2022-07-16] MEDS: FERROUS SULFATE 325 MG EC TABLET PO SCH (08:27)
[2022-07-16] MEDS: ASCORBIC ACID 500 MG TABLET PO SCH (08:27)
[2022-07-16] MEDS: LOSARTAN POTASSIUM 50 MG TABLET PO SCH (08:27)
[2022-07-16] MEDS: FINASTERIDE 5 MG TABLET PO SCH (08:27)
[2022-07-16] MEDS: APIXABAN 5 MG TABLET PO SCH ×2 (08:27→22:04)
[2022-07-16] MEDS: PANTOPRAZOLE SODIUM 40 MG DR TABLET PO SCH (08:27)
[2022-07-16] MEDS: MULTIVITAMINS WITH MINERALS, THERAPEUTIC TABLET PO SCH (08:27)
[2022-07-16] MEDS: LIDOCAINE 5% TRANSDERMAL PATCH TD SCH (08:28)
[2022-07-16] MEDS: ATENOLOL 50 MG TABLET PO SCH (08:28)
[2022-07-16] MEDS: ZINC SULFATE 220 MG CAPSULE PO SCH (08:28)
[2022-07-16] MEDS: DULoxetine HCL 30 MG CAPSULE PO SCH (08:28)
[2022-07-16] MEDS: BUMETANIDE 1 MG TABLET PO SCH (08:33)
[2022-07-16] MEDS: COLD CREAM, SKIN EMOLLIENT 170 GM JAR TP SCH ×2 (08:44→22:05)
[2022-07-16] MEDS: BACITRACIN 28 GM OINTMENT TP SCH ×2 (08:44→22:05)
[2022-07-16] MEDS: 0.9% SODIUM CHLORIDE 10 ML SYRINGE IVP SCH ×2 (08:54→22:08)
[2022-07-16] MEDS: OxyCODONE HCL 5 MG IR TABLET PO PRN (13:08)
[2022-07-16] MEDS ORDERED: SODIUM CHLORIDE 0.9% 100 ML ONE (15:22)
[2022-07-16] MEDS: ERTAPENEM SODIUM 1 GM in SODIUM CHLORIDE 0.9% 50 ML IV SCH (16:49)
[2022-07-16] MEDS ORDERED: LIDOCAINE 2% 6 ML JELLY TP PRN (19:15)
[2022-07-16 21:00] VITALS: BP 109/46
[2022-07-16] MEDS: TraZODone HCL 50 MG TABLET PO SCH (22:04)
[2022-07-16] MEDS: -LIDODERM PATCH NOTE- MISC SCH (22:04)
[2022-07-16] MEDS: TAMSULOSIN HCL 0.4 MG CAPSULE PO SCH (22:05)
[2022-07-16] MEDS: ATORVASTATIN CALCIUM 40 MG TABLET PO SCH (22:05)
[2022-07-16] MEDS: CHLORHEXIDINE GLUCONATE 4% 118 ML TOPICAL LIQUID TP SCH (22:05)
[2022-07-17] MEDS: BACITRACIN 28 GM OINTMENT TP SCH ×2 (07:59→20:42)
[2022-07-17] MEDS: LIDOCAINE 5% TRANSDERMAL PATCH TD SCH (07:59)
[2022-07-17] MEDS: DULoxetine HCL 30 MG CAPSULE PO SCH (07:59)
[2022-07-17] MEDS: ATENOLOL 50 MG TABLET PO SCH (08:00)
[2022-07-17] MEDS: ZINC SULFATE 220 MG CAPSULE PO SCH (08:00)
[2022-07-17] MEDS: LOSARTAN POTASSIUM 50 MG TABLET PO SCH (08:00)
[2022-07-17] MEDS: GABAPENTIN 100 MG CAPSULE PO SCH ×2 (08:00→20:42)
[2022-07-17] MEDS: ASCORBIC ACID 500 MG TABLET PO SCH (08:00)
[2022-07-17] MEDS: PANTOPRAZOLE SODIUM 40 MG DR TABLET PO SCH (08:00)
[2022-07-17] MEDS: MULTIVITAMINS WITH MINERALS, THERAPEUTIC TABLET PO SCH (08:00)
[2022-07-17] MEDS: FINASTERIDE 5 MG TABLET PO SCH (08:00)
[2022-07-17] MEDS: APIXABAN 5 MG TABLET PO SCH ×2 (08:01→20:41)
[2022-07-17] MEDS: CLOPIDOGREL BISULFATE 75 MG TABLET PO SCH (08:01)
[2022-07-17] MEDS: BUMETANIDE 1 MG TABLET PO SCH (08:01)
[2022-07-17] MEDS: FERROUS SULFATE 325 MG EC TABLET PO SCH (08:01)
[2022-07-17] MEDS: COLD CREAM, SKIN EMOLLIENT 170 GM JAR TP SCH ×2 (08:01→20:43)
[2022-07-17] MEDS: 0.9% SODIUM CHLORIDE 10 ML SYRINGE IVP SCH ×2 (08:13→20:41)
[2022-07-17] MEDS: ETHYL ALCOHOL 62% ANTISEPTIC NASAL SANITIZER 0.6 ML AMPUL NASAL SCH ×2 (08:14→20:41)
[2022-07-17 09:12] VITALS: BP 128/61
[2022-07-17 11:35] VITALS: BP 96/35
[2022-07-17 11:42] VITALS: BP 101/34
[2022-07-17 11:51] VITALS: BP 112/44
[2022-07-17 14:28] LABS: BASOPHILS % (AUTO) 0.9 % (0.0-2.0); EOSINOPHILS % (AUTO) 1.2 % (1.0-6.0); HEMATOCRIT 26.3 % (41-53); HEMOGLOBIN 8.7 g/dL (13.5-17.5); LYMPHOCYTES # (AUTO) 2.6 K/uL (1.0-4.8); LYMPHOCYTES % (AUTO) 14.6 % (22.0-44.0); MEAN CORPUSCULAR HEMOGLOBIN 29.7 pg (26.0-34.0); MEAN CORPUSCULAR VOLUME 90 fL (80-100); MONOCYTES # (AUTO) 1.4 K/uL (0.1-1.0); NEUTROPHILS # (AUTO) 13.2 K/uL (1.8-7.7); NEUTROPHILS % (AUTO) 75.3 % (40.0-70.0); PLATELET COUNT (AUTO) 242 K/uL (150-450); RED BLOOD CELL COUNT(AUTO) 2.92 MIL/uL (4.50-5.90); RED CELL DISTRIBUTION WIDTH 14.9 % (11.5-14.5)
[2022-07-17 14:37] LABS: ANION GAP 10 mmol/L (8-16); CALCIUM, TOTAL 9.2 mg/dL (8.8-10.5); CARBON DIOXIDE 26 mmol/L (22-29); CHLORIDE 103 mmol/L (98-107); CREATININE 1.38 mg/dL (0.60-1.30); GLOMERULAR FILTR. RATE CALC > 60 mL/min (>60); GLUCOSE,RANDOM 135 mg/dL (70-110); POTASSIUM 3.9 mmol/L (3.5-5.1); SODIUM SERUM 139 mmol/L (136-145)
[2022-07-17] MEDS ORDERED: SODIUM CHLORIDE 0.9% 1,000 ML IV ONE (15:00)
[2022-07-17] MEDS: ERTAPENEM SODIUM 1 GM in SODIUM CHLORIDE 0.9% 50 ML IV SCH (16:29)
[2022-07-17 20:00] VITALS: BP 115/60
[2022-07-17] MEDS: ATORVASTATIN CALCIUM 40 MG TABLET PO SCH (20:41)
[2022-07-17] MEDS: TAMSULOSIN HCL 0.4 MG CAPSULE PO SCH (20:41)
[2022-07-17] MEDS: TraZODone HCL 50 MG TABLET PO SCH (20:41)
[2022-07-17] MEDS: -LIDODERM PATCH NOTE- MISC SCH (20:41)
[2022-07-17 20:42] LABS: APPEARANCE,URINE HAZY (CLEAR); BILIRUBIN,URINE NEGATIVE (NEGATIVE); GLUCOSE, URINE (UA) NEGATIVE (NEGATIVE); KETONES,URINE NEGATIVE (NEGATIVE); LEUKOCYTE ESTERASE ,URINE TRACE (NEGATIVE); NITRATE,URINE NEGATIVE (NEGATIVE); OCCULT BLOOD,URINE LARGE (NEGATIVE); PH,URINE 5.5 (5.0-8.0); PROTEIN,URINE 30-70 mg/dL (NEGATIVE); SPECIFIC GRAVITIY, URINE 1.024 (1.003-1.030)
[2022-07-17] MEDS: CHLORHEXIDINE GLUCONATE 4% 118 ML TOPICAL LIQUID TP SCH (20:42)
[2022-07-17 21:17] LABS: BACTERIA,URINE None Seen /HPF (None Seen)
[2022-07-18] MEDS: OxyCODONE HCL 5 MG IR TABLET PO PRN (05:54)
[2022-07-18] MEDS: ASCORBIC ACID 500 MG TABLET PO SCH (06:21)
[2022-07-18] MEDS: BUMETANIDE 1 MG TABLET PO SCH (06:27)
[2022-07-18] MEDS: GABAPENTIN 100 MG CAPSULE PO SCH (06:27)
[2022-07-18] MEDS: DULoxetine HCL 30 MG CAPSULE PO SCH (06:27)
[2022-07-18] MEDS: FERROUS SULFATE 325 MG EC TABLET PO SCH (06:27)
[2022-07-18] MEDS: CLOPIDOGREL BISULFATE 75 MG TABLET PO SCH (06:27)
[2022-07-18] MEDS: ZINC SULFATE 220 MG CAPSULE PO SCH (06:28)
[2022-07-18] MEDS: PANTOPRAZOLE SODIUM 40 MG DR TABLET PO SCH (06:28)
[2022-07-18] MEDS: FINASTERIDE 5 MG TABLET PO SCH (06:28)
[2022-07-18] MEDS: LIDOCAINE 5% TRANSDERMAL PATCH TD SCH (06:28)
[2022-07-18] MEDS: MULTIVITAMINS WITH MINERALS, THERAPEUTIC TABLET PO SCH (06:28)
[2022-07-18] MEDS: APIXABAN 5 MG TABLET PO SCH (06:28)
[2022-07-18] MEDS: BACITRACIN 28 GM OINTMENT TP SCH (06:29)
[2022-07-18] MEDS: ETHYL ALCOHOL 62% ANTISEPTIC NASAL SANITIZER 0.6 ML AMPUL NASAL SCH (06:30)
[2022-07-18] MEDS: 0.9% SODIUM CHLORIDE 10 ML SYRINGE IVP SCH (06:30)
[2022-07-18] MEDS: COLD CREAM, SKIN EMOLLIENT 170 GM JAR TP SCH (06:30)
[2022-07-18 06:54] VITALS: BP 129/79
[2022-07-18] MEDS ORDERED: ATENOLOL 25 MG TABLET PO SCH (09:00)
== END 2022-07-20 13:17 | DRG 299 ==
LOC: 2WR 07-06 17:32
PROVIDERS: ADMIT Physical Medicine & Rehabilitation; ATTEND Physical Medicine & Rehabilitation
DX: I73.9 Peripheral vascular disease, unspecified (principal); A41.9 Sepsis, unspecified organism; J69.0 Pneumonitis due to inhalation of food and vomit; J96.01 Acute respiratory failure with hypoxia; E46 Unspecified protein-calorie malnutrition; I13.0 Hypertensive heart and chronic kidney disease with heart failure and stage 1 through stage 4 chronic kidney disease, or unspecified chronic kidney disease; N39.0 Urinary tract infection, site not specified; R47.01 Aphasia; I24.8 Other forms of acute ischemic heart disease; B95.2 Enterococcus as the cause of diseases classified elsewhere; D64.9 Anemia, unspecified; N40.1 Benign prostatic hyperplasia with lower urinary tract symptoms; R33.9 Retention of urine, unspecified; B95.62 Methicillin resistant Staphylococcus aureus infection as the cause of diseases classified elsewhere; B96.20 Unspecified Escherichia coli [E. coli] as the cause of diseases classified elsewhere; G47.00 Insomnia, unspecified; G62.9 Polyneuropathy, unspecified; D63.8 Anemia in other chronic diseases classified elsewhere; I48.0 Paroxysmal atrial fibrillation; I50.9 Heart failure, unspecified; N18.9 Chronic kidney disease, unspecified; R53.81 Other malaise; I48.91 Unspecified atrial fibrillation; R41.89 Other symptoms and signs involving cognitive functions and awareness; R26.9 Unspecified abnormalities of gait and mobility; R47.1 Dysarthria and anarthria; I25.10 Atherosclerotic heart disease of native coronary artery without angina pectoris; R13.10 Dysphagia, unspecified; Z79.02 Long term (current) use of antithrombotics/antiplatelets; Z79.01 Long term (current) use of anticoagulants; Z87.891 Personal history of nicotine dependence; Z68.26 Body mass index [BMI] 26.0-26.9, adult; Z79.899 Other long term (current) drug therapy
CPT/HCPCS: 70551; 71045; 74230; 80048; 80053; 81001; 82607; 82746; 83036; 84443; 85025; 86140; 87040; 87081; 87481; 92507; 92521; 92526; 92610; 92611; 93880; 97110; 97112; 97163; 97167; 97530; 97535; 99366; J1335; J2060; J7030; J7050; Q0162; Q9967; 36415-L1; 36415-TC